=== PATIENT | female | born 1970 | race Caucasian/White ===

== ENCOUNTER 2017-06-05 23:58 | Inpatient (IN) | payer OTHER ==
[~2017-06-05] VITALS: Ht 154.9 cm; Wt 59.9 kg
[2017-06-06 01:05] LABS: BASOPHIL % 1.8 % (0-2); PLATELET COUNT 387 x10^3mcL (130-400); RED CELL DISTRIBUTION WIDTH 13.1 % (11.5-14.5)
[2017-06-06 01:13] LABS: CALCIUM 8.3 mg/dL (8.5-10.1); CARBON DIOXIDE 20.2 mmol/L (21-32); CHLORIDE SERUM 106 mmol/L (98-107); CREATININE SERUM 0.8 mg/dL (0.6-1.0); GFR1 > 60 mL/min; GLUCOSE SERUM 101 mg/dL (74-106); POTASSIUM SERUM 3.9 mmol/L (3.5-5.1); SODIUM SERUM 139 mmol/L (136-145)
[2017-06-06 01:18] LABS: ALBUMIN 3.8 g/dL (3.4-5.0); ALKALINE PHOSPHATASE 65 U/L (46-116); ALT/SGPT 25 U/L (14-59); AST/SGOT 16 U/L (15-37); BILIRUBIN TOTAL 0.2 mg/dL (0.20-1.00); TOTAL PROTEIN, SERUM 8.2 g/dL (6.4-8.2)
[2017-06-06 02:20] LABS: AMPHETAMINE QUAL UR NONE DETECTED (NEG <=1000)
[2017-06-06 08:24] VITALS: BP 113/70
[2017-06-06 08:46] LABS: MAGNESIUM 2.1 mg/dL (1.8-2.4); PHOSPHOROUS 3.8 mg/dL (2.5-4.9)
[2017-06-06 08:47] LABS: CHOLESTEROL/HDL RATIO 4.4
[2017-06-06 08:54] LABS: FREE T4 0.86 ng/dL (0.76-1.46); FREE THYROXINE INDEX 2.2 ug/dL (1.4-4.5); T3 TOTAL 0.98 ng/mL; T4(THYROXINE) 5.6 ug/dL (4.7-13.3)
[2017-06-06 12:51] VITALS: BP 116/79
[2017-06-06 12:54] LABS: microscopic required? NO
[2017-06-06 13:04] LABS: urine erythrocyte NEGATIVE (NEGATIVE)
[2017-06-06 17:15] VITALS: BP 118/63; BP 188/63
== END 2017-06-06 19:18 | disposition left against medical advice (07) | DRG 770 ==
LOC: ED 23:58 → DU 06-06 06:37
PROVIDERS: Emergency Medicine; ADMIT Family Medicine
DX: F10.229 Alcohol dependence with intoxication, unspecified (principal); G92 Toxic encephalopathy; Y90.9 Presence of alcohol in blood, level not specified; T14.91 Suicide attempt; E78.5 Hyperlipidemia, unspecified
CPT/HCPCS: 83880; 84439; G0480; J7030; J7040; Q0092